=== PATIENT | female | born 1960 | race Caucasian/White ===

== ENCOUNTER 2021-06-28 12:36 | Inpatient (IN) ==
[2021-06-28] MEDS ORDERED: Ondansetron ODT 4 mg TAB 4 MG TAB PO ONE (16:09)
[2021-06-28] MEDS ORDERED: NS 0.9% 1000 ml BAG 1,000 ML IV ONE (19:27)
[2021-06-28] MEDS ORDERED: Droperidol 5 MG/2 ML 2 ML VIAL IV ONE (19:27)
[2021-06-28 20:25] LABS: Hematocrit 33 % (35-47); Hemoglobin 11.5 g/dL (12.0-16.0); Mean Corpuscular HGB Conc 35 g/dL (31-36); Mean Corpuscular Hemoglobin 30 pg (27-31); Mean Corpuscular Volume 88 fL (80-97); Mean Platelet Volume 8.4 fL (7.4-10.4); Platelet Count 235 10^3/uL (150-450); Red Blood Count 3.79 10^6 /uL (3.70-4.87); Red Cell Distribution Width 13 % (10-15); White Blood Count 7.7 10^3/uL (3.5-10.8)
[2021-06-28 20:38] LABS: Albumin/Globulin Ratio 1.5 (1-3); Calcium 9.1 mg/dL (8.6-10.3); EGFR African American 3.6 (>60); Globulin 2.6 g/dL (2-4); Potassium 4.1 mmol/L (3.5-5.0); Total Bilirubin 0.5 mg/dL (0.2-1.0); Total Protein 6.6 g/dL (6.4-8.9)
[2021-06-28 20:41] LABS: Influenza A Molecular Negative (Negative); Influenza B Molecular Negative (Negative)
[2021-06-28 21:29] LABS: ABS Basophils 0.1 10^3/ul (0-0.2); ABS Eosinophils 0.3 10^3/ul (0-0.6); ABS Lymphocytes 1.3 10^3/ul (1.0-4.8); ABS Monocytes 0.7 10^3/ul (0-0.8); ABS Neutrophils 5.3 10^3/ul (1.5-7.7); Eosinophil % 4.5 %
[2021-06-28 21:58] LABS: Calcium 8.9 mg/dL (8.6-10.3); EGFR African American 3.5 (>60); EGFR Non-African American 2.9 (>60); Potassium 4.3 mmol/L (3.5-5.0)
[2021-06-28 22:08] LABS: Rapid COVID-19 Molecular Undetected (Undetected)
[2021-06-29] MEDS ORDERED: Ondansetron 4 mg VIAL 2 MG/ML 2 ml VIAL IV PRN (00:15)
[2021-06-29] MEDS ORDERED: Lactated Ringers 1000 ml BAG 1,000 ML IV SCH (01:00)
[2021-06-29 02:38] LABS: Urine Appearance Clear; Urine Bilirubin Negative (Negative); Urine Blood 2+ (Negative); Urine Color Straw; Urine Glucose Negative (Negative); Urine Ketones Negative (Negative); Urine Nitrite Negative (Negative); Urine Protein 2+(100 mg/dL) (Negative); Urine Specific Gravity 1.005 (1.002-1.030); Urine Urobilinogen Negative (Negative)
[2021-06-29 02:52] LABS: Urine Creatinine Concentration 96.22 mg/dL
[2021-06-29 03:07] LABS: Urine Bacteria 1+ (Absent); Urine Red Blood Cell Trace(0-2/hpf) (Absent); Urine White Blood Cell Trace(0-5/hpf) (Absent)
[2021-06-29] MEDS: Heparin 5000 UNITS/ML 1 mL VIAL SUBCUT SCH ×3 (06:04→21:50)
[2021-06-29 06:23] LABS: Hematocrit 32 % (35-47); Hemoglobin 10.9 g/dL (12.0-16.0); Mean Corpuscular HGB Conc 35 g/dL (31-36); Mean Corpuscular Hemoglobin 31 pg (27-31); Mean Corpuscular Volume 89 fL (80-97); Mean Platelet Volume 8.3 fL (7.4-10.4); Platelet Count 230 10^3/uL (150-450); Red Blood Count 3.57 10^6 /uL (3.70-4.87); Red Cell Distribution Width 13 % (10-15); White Blood Count 8.5 10^3/uL (3.5-10.8)
[2021-06-29 06:39] LABS: Troponin I 0.02 ng/mL (<0.03)
[2021-06-29 06:40] LABS: Calcium 8.6 mg/dL (8.6-10.3); EGFR African American 3.8 (>60); EGFR Non-African American 3.1 (>60); Potassium 4.1 mmol/L (3.5-5.0)
[2021-06-29 07:50] LABS: ABS Basophils 0.1 10^3/ul (0-0.2); ABS Eosinophils 0.4 10^3/ul (0-0.6); ABS Lymphocytes 1.3 10^3/ul (1.0-4.8); ABS Monocytes 0.6 10^3/ul (0-0.8); ABS Neutrophils 6.1 10^3/ul (1.5-7.7); Eosinophil % 4.6 %; Lymphocyte % 15.8 %
[2021-06-29 07:58] LABS: Magnesium 2.1 mg/dL (1.9-2.7)
[2021-06-29 09:30] LABS: Platelet Count 221 10^3/ul (150-450)
[2021-06-29 09:42] LABS: Activated Partial Thrombo Time 26.6 seconds (26.0-38.0); Fibrinogen 424.2 mg/dL (110.8-404.3); INR 0.94 (0.86-1.15)
[2021-06-29 10:12] LABS: Schistocytes ABSENT
[2021-06-29] MEDS ORDERED: Lactated Ringers 1000 ml BAG 1,000 ML IV ONE (14:57)
[2021-06-29] MEDS: Sodium Bicarb 650 mg (ANTACID) TAB PO SCH (21:50)
[2021-06-30] MEDS: Heparin 5000 UNITS/ML 1 mL VIAL SUBCUT SCH ×3 (06:51→23:07)
[2021-06-30] MEDS: Sodium Bicarb 650 mg (ANTACID) TAB PO SCH ×2 (08:45→23:06)
[2021-06-30] MEDS ORDERED: Sodium Bicarb 650 mg (ANTACID) TAB PO SCH (09:00)
[2021-06-30 09:19] LABS: Calcium 8.7 mg/dL (8.6-10.3); EGFR African American 4.3 (>60); EGFR Non-African American 3.6 (>60); Potassium 4.1 mmol/L (3.5-5.0)
[2021-06-30] MEDS ORDERED: Fluticasone NASAL SPRAY 50MCG 16 gm SPRAY BTL BOTH NARES PRN (09:30)
[2021-06-30 10:47] LABS: Hepatitis C Antibody Negative (Negative)
[2021-06-30 13:50] LABS: HIV 4th Generation Nonreactive (Nonreactive)
[2021-06-30 14:51] LABS: Urine TP Concentration 27 mg/dL
[2021-07-01] MEDS: Heparin 5000 UNITS/ML 1 mL VIAL SUBCUT SCH ×3 (06:18→20:22)
[2021-07-01 06:20] LABS: Calcium 8.7 mg/dL (8.6-10.3); EGFR African American 5.1 (>60); EGFR Non-African American 4.2 (>60); Potassium 4.2 mmol/L (3.5-5.0)
[2021-07-01] MEDS: Sodium Bicarb 650 mg (ANTACID) TAB PO SCH ×2 (08:01→20:21)
[2021-07-01 11:23] LABS: Complement C3 113 mg/dL (75 - 175)
[2021-07-01 14:27] LABS: Hepatitis Be Antigen Negative (Negative)
[2021-07-01 14:43] LABS: Hepatitis Be Antibody Negative (Negative)
[2021-07-01 17:31] LABS: Albumin 2.8 g/dL (3.4-4.7); Albumin/Globulin Ratio 1.06; Gamma Globulin 0.7 g/dL (0.6-1.6); Total Protein(PEP) 5.5 g/dL (6.3 - 7.9)
[2021-07-01] MEDS ORDERED: Lactated Ringers 1000 ml BAG 1,000 ML IV ONE (19:39)
[2021-07-02] MEDS: Heparin 5000 UNITS/ML 1 mL VIAL SUBCUT SCH ×2 (06:36→14:09)
[2021-07-02 06:54] LABS: Hematocrit 28 % (35-47); Hemoglobin 9.6 g/dL (12.0-16.0); Mean Corpuscular HGB Conc 35 g/dL (31-36); Mean Corpuscular Hemoglobin 30 pg (27-31); Mean Corpuscular Volume 87 fL (80-97); Mean Platelet Volume 8.5 fL (7.4-10.4); Platelet Count 278 10^3/uL (150-450); Red Blood Count 3.15 10^6 /uL (3.70-4.87); Red Cell Distribution Width 14 % (10-15); White Blood Count 6.6 10^3/uL (3.5-10.8)
[2021-07-02 06:59] LABS: Anion Gap 8 mmol/L (2-11); Blood Urea Nitrogen 73 mg/dL (6-24); CO2 Carbon Dioxide 22 mmol/L (22-32); Calcium 8.6 mg/dL (8.6-10.3); Chloride 106 mmol/L (101-111); EGFR African American 6.8 (>60); EGFR Non-African American 5.6 (>60); Glucose 130 mg/dL (70-100); Magnesium 1.7 mg/dL (1.9-2.7); Phosphorus 5.6 mg/dL (2.5-5.0); Potassium 4.6 mmol/L (3.5-5.0); Sodium 136 mmol/L (135-145)
[2021-07-02] MEDS: Sodium Bicarb 650 mg (ANTACID) TAB PO SCH (08:41)
[2021-07-02] MEDS ORDERED: Magnesium Sulfate IV 3 GM in NS 0.9% 100 ml BAG 100 ML IVPB ONE (10:35)
[2021-07-02 12:06] LABS: % Iron Saturation 44 % (15-55); Iron 117 ug/dL (50-212); Total Iron Binding Capacity 265 mcg/dL (250-450); Transferrin 189 mg/dL (203-362); Unsaturated Iron Binding < 250 ug/dL
[2021-07-02 14:08] LABS: Ferritin 194.8 ng/mL (11-307)
[2021-07-02] MEDS ORDERED: Magnesium Chloride EC 64 mgTAB PO ONE (14:35)
[2021-07-02 15:55] VITALS: BP 149/74
[2021-07-04 17:11] LABS: Albumin 239.4 mg/24 h; Albumin/Globulin Ratio 1.73; Gamma Globulin 48.6 mg/24 h; Total Protein Urine 374 mg/24 h (<229); Urine Volume 1700 mL
== END 2021-07-02 18:05 | disposition home or self-care (01) | DRG 469 ==
LOC: EDHOLD 12:36 → ED 12:36 → SUATTDRO 06-29 00:15 → MED 06-29 09:04
PROVIDERS: ADMIT Student in an Organized Health Care Education/Training Program; ATTEND Internal Medicine